=== PATIENT | female | born 1945 | race Caucasian/White ===

== ENCOUNTER 2018-05-27 16:38 | Emergency (ER) | payer MEDICARE, OTHER ==
--- NOTE | 2018-05-27 18:46 | EDM.PDOC ---
ED HPI GENERAL MEDICAL PROBLEM - General Chief Complaint: Chest Pain Stated Complaint: CHEST PAIN Time Seen by Provider: 05/27/18 17:16 Source of Information: Reports: Patient, Family History Limitations: Reports: No Limitations - History of Present Illness INITIAL COMMENTS - FREE TEXT/NARRATIVE: Pt is 72 yo F h/o DM2, HLD, DM2 comes in today with for mid sternal chest pain that started a couple hours ago. She states she is "scared" and wanted to make sure it wasn't her heart. She states this is the 3rd episode she has had within the past week and she has had them off and on for 3 months now. She thinks it is getting more consistent. The onset is random, she doesn't think anything makes it worse or better. She has not tried any medications at home. She states she has just been feeling exhausted and describes the pain as a constant "dullish" pain, lasts for about an hour, and just goes away on its own. She denies any previous heart issues, changes in eating, heart burn or any sick symptoms at this time. She does admit that she is having some marital issues at this time and has been very stressed out at home. She is tearful when talking about this. No other complaints at this time. Her PCP is Lala MUNOZ. Chest Pain Score (Numeric/FACES): 7 - Related Data Allergies Allergy/AdvReac Type Severity Reaction Status Date / Time No Known Allergies Allergy Verified 05/27/18 17:05 Past Medical History Cardiovascular History: Reports: Hypertension Gastrointestinal History: Reports: Bowel Obstruction Endocrine/Metabolic History: Reports: Diabetes, Type II - Past Surgical History Female Surgical History: Reports: Hysterectomy Social & Family History - Tobacco Use Smoking Status *Q: Former Smoker Used Tobacco, but Quit: Yes Month/Year Tobacco Last Used: 40 years ago - Caffeine Use Caffeine Use: Reports: Coffee - Recreational Drug Use Recreational Drug Use: No ED ROS GENERAL - Review of Systems Review Of Systems: See Below Constitutional: Reports: No Symptoms. Denies: Fever, Chills, Diaphoresis HEENT: Reports: Glasses Respiratory: Reports: No Symptoms. Denies: Shortness of Breath, Cough Cardiovascular: Reports: Chest Pain (mid sternal), Blood Pressure Problem. Denies: Edema, Palpitations Endocrine: Reports: No Symptoms GI/Abdominal: Reports: No Symptoms. Denies: Abdominal Pain, Diarrhea, Nausea, Vomiting : Reports: No Symptoms Musculoskeletal: Reports: No Symptoms Skin: Reports: No Symptoms Neurological: Reports: No Symptoms Psychiatric: Reports: Anxiety ED EXAM, GENERAL - Physical Exam Exam: See Below Exam Limited By: No Limitations General Appearance: Alert, WD/WN, Anxious Eye Exam: Bilateral Eye: EOMI, Normal Inspection, PERRL Ears: Normal External Exam, Hearing Grossly Normal Nose: Normal Inspection Head: Atraumatic, Normocephalic Neck: Normal Inspection, Supple, Non-Tender, Full Range of Motion Respiratory/Chest: No Respiratory Distress, Lungs Clear, Normal Breath Sounds, No Accessory Muscle Use, Chest Non-Tender Cardiovascular: Normal Peripheral Pulses, Regular Rate, Rhythm, No Edema, No Gallop, No JVD, No Murmur, No Rub GI/Abdominal: Normal Bowel Sounds, Soft, Non-Tender, No Organomegaly, No Distention, No Abnormal Bruit, No Mass Back Exam: Normal Inspection Neurological: Alert, Oriented, CN II-XII Intact, Normal Cognition, Normal Gait, Normal Reflexes, No Motor/Sensory Deficits Psychiatric: Normal Affect, Anxious, Tearful Skin Exam: Warm, Dry, Intact, Normal Color, No Rash EKG INTERPRETATION EKG Date: 05/27/18 Time: 17:30 Rhythm: NSR [place]: Normal P-Wave: Present QRS: Normal ST-T: Normal QT: Normal EKG Interpretation Comments: low voltage Course - Vital Signs Last Recorded V/S: Last Vital Signs Temp 97.9 F 05/27/18 16:58 Pulse 94 05/27/18 16:58 Resp 16 05/27/18 16:58 BP 149/72 H 05/27/18 16:58 Pulse Ox 98 05/27/18 16:58 - Orders/Labs/Meds Orders: Active Orders 24 hr Category Date Time Status EKG 12 Lead [EKG Documentation Completion] [RC] STAT Care 05/27/18 17:10 Active Chest 2V [CR] Stat Exams 05/27/18 17:16 Taken Labs: Laboratory Tests 05/27/18 05/27/18 05/27/18 Range/Units 17:30 17:30 17:30 WBC 8.77 (3.98-10.04) K/mm3 RBC 4.30 (3.98-5.22) M/mm3 Hgb 12.9 (11.2-15.7) gm/L Hct 40.5 (34.1-44.9) % MCV 94.2 (79.4-94.8) fl MCH 30.0 (25.6-32.2) pg MCHC 31.9 L (32.2-35.5) g/dl RDW Std Deviation 44.5 (36.4-46.3) fL Plt Count 339 (182-369) K/mm3 MPV 9.9 (9.4-12.3) fl Neut % (Auto) 62.5 (34.0-71.1) % Lymph % (Auto) 22.2 (19.3-51.7) % [place] % (Auto) 10.7 (4.7-12.5) % Eos % (Auto) 3.6 (0.7-5.8) Baso % (Auto) 0.7 (0.1-1.2) % Neut # (Auto) 5.47 (1.56-6.13) K/mm3 Lymph # (Auto) 1.95 (1.18-3.74) K/mm3 [place] # (Auto) 0.94 H (0.24-0.36) K/mm3 Eos # (Auto) 0.32 (0.04-0.36) K/mm3 Baso # (Auto) 0.06 (0.01-0.08) K/mm3 Sodium 142 (136-145) mEq/L Potassium 3.9 (3.5-5.1) mEq/L Chloride 104 (98-107) mEq/L Carbon Dioxide 24 (21-32) mEq/L Anion Gap 17.9 H (5-15) BUN 18 (7-18) mg/dL Creatinine 1.0 (0.55-1.02) mg/dL Est Cr Clr Drug Dosing 47.10 mL/min Estimated GFR (MDRD) 55 (>60) mL/min BUN/Creatinine Ratio 18.0 (14-18) Glucose 153 H (80-115) mg/dL Calcium 9.8 (8.5-10.1) mg/dL Total Bilirubin 0.3 (0.2-1.0) mg/dL AST 29 (15-37) U/L ALT 53 (14-59) U/L Alkaline Phosphatase 99 (46-116) U/L Troponin I < 0.017 (0.00-0.056) ng/mL Total Protein 7.4 (6.4-8.2) g/dl Albumin 3.8 (3.4-5.0) g/dl Globulin 3.6 gm/dL Albumin/Globulin Ratio 1.1 (1-2) - Re-Assessments/Exams Free Text/Narrative Re-Assessment/Exam: 05/27/18 17:10 Ordered CBC, CMP, Troponin, CXR, EKG 05/27/18 17:30 Troponin <0.017 EKG WNL 05/27/18 19:00 CXR reviewed by myself and Dr. Rosario- nothing acute seen. 05/27/18 20:03 CBC and CMP WNL At this time workup has been WNL. This chest pain is likely 2/2 anxiety and stress that pt admitted to. Recommend relaxation activities and follow up with primary care. She agrees with this plan. Departure - Departure Time of Disposition: 19:59 Disposition: Home, Self-Care 01 Condition: Good Clinical Impression: Anxiety, Chest pain due to psychological stress Instructions: Nonspecific Chest Pain, [id number], Living With Anxiety, Panic Attack, [id number] Referrals: Lala Perez [facility]ESSION[facility] [Primary Care Provider] - Forms: ED Department Discharge Additional Instructions: You were seen in the ED today for chest pain. Your cardiac workup and infectious workup was negative today, and it seems that the source is likely related to current stress/anxiety in your life. Recommend counseling, meditation , and any other relaxing activity such as walking to help alleviate the stress. Recommend follow up with primary care provider. Please return to ED if new or worsening symptoms. - My Orders Last 24 Hours: My Active Orders 05/27/18 17:10 EKG 12 Lead [EKG Documentation Completion] [RC] STAT 05/27/18 17:16 Chest 2V [CR] Stat - Assessment/Plan Last 24 Hours: My Active Orders 05/27/18 17:10 EKG 12 Lead [EKG Documentation Completion] [RC] STAT 05/27/18 17:16 Chest 2V [CR] Stat
--- NOTE | 2018-05-28 07:08 | CR ---
Chest: Two views of the chest were obtained. Comparison: Previous chest x-ray of 10/06/14. Heart size and mediastinum are normal. Lungs are clear. Bony structures are unremarkable for the patient's age. Impression: 1. Nothing acute is seen on two-view chest x-ray. Diagnostic code #1
== END 2018-05-27 20:05 | disposition home or self-care (01) ==
LOC: JD.ED 16:38
DX: R07.2 Precordial pain (principal); F43.9 Reaction to severe stress, unspecified; F41.9 Anxiety disorder, unspecified; I10 Essential (primary) hypertension; E11.9 Type 2 diabetes mellitus without complications; Z87.891 Personal history of nicotine dependence
CPT/HCPCS: 36415; 71046; 71046-26; 80053; 84484; 85025; 93005; 93010; 99284; 99285-25

== ENCOUNTER 2021-03-30 08:21 | Day surgery (SDC) | payer MEDICARE ==
[~2021-03-30 08:21] MED LIST: Lactated Ringers 1,000 ML IV SCH; Lidocaine 1%/Sod Bicarbonate in NS 8.4% 1 ML Syringe IDERM PRN; Sodium Chloride 0.9% 10 ML Syringe FLUSH PRN; Sodium Chloride 0.9% 10 ML Syringe FLUSH SCH
[2021-03-30] MEDS: oxyCODONE ER 10 MG TAB.ER PO SCH ×2 (08:46→08:50)
[2021-03-30] MEDS: Acetaminophen 325 MG Tab PO SCH ×2 (08:47→08:50)
[2021-03-30] MEDS: Pregabalin 25 MG Cap PO SCH ×2 (08:47→08:50)
[2021-03-30] MEDS ORDERED: Midazolam 1 MG/ML 2 ML SDV ONE (10:34)
[2021-03-30] MEDS ORDERED: ceFAZolin 1 GM Vial ONE (10:35)
[2021-03-30] MEDS ORDERED: fentaNYL 100 MCG/2 ML SDV ONE (10:35)
[2021-03-30] MEDS ORDERED: Propofol 200 MG/20 ML SDV ONE ×2 (10:36→12:07)
[2021-03-30] MEDS ORDERED: Lidocaine 1% 4 ML ONE (10:36)
[2021-03-30] MEDS ORDERED: fentaNYL 100 MCG/2 ML SDV IVPUSH PRN (11:24)
[2021-03-30] MEDS ORDERED: Ondansetron 4 MG/2 ML SDV IVPUSH PRN (11:24)
[2021-03-30] MEDS ORDERED: Lactated Ringers 1,000 ML ONE (11:31)
[2021-03-30] MEDS: Morphine 8 MG, EPINEPHrine 0.3 MG, Cefuroxime 750 MG, Ketorolac 30 MG, Sodium Chloride ... PRN ×10 (11:31→12:05)
[2021-03-30] MEDS: Vancomycin 1 GM SDV ONE ×2 (11:31→12:10)
[2021-03-30] MEDS ORDERED: Ondansetron 4 MG/2 ML SDV ONE (11:59)
[2021-03-30] MEDS ORDERED: Acetaminophen/HYDROcodone 325-5 MG Tab PO PRN (12:39)
[2021-03-30] MEDS ORDERED: EPINEPHrine 1 MG/ML SDV ONE (12:44)
[2021-03-30] MEDS ORDERED: Ropivacaine 0.5% 5 MG/ML 30 ML SDV ONE (12:44)
[2021-03-30] MEDS ORDERED: Metoclopramide 10 MG/2 ML SDV IVPUSH STA (14:01)
[2021-03-30] MEDS ORDERED: Haloperidol Lactate 5 MG/ML SDV IVPUSH ONE (14:41)
[2021-03-30] MEDS ORDERED: Scopolamine 1.5 MG Transdermal Patch TRDERM ONE (16:15)
[2021-03-31] MEDS ORDERED: Acetaminophen/HYDROcodone 325-5 MG Tab PO PRN (10:13)
[2021-03-31] MEDS ORDERED: Ondansetron 4 MG/2 ML SDV IVPUSH ONE (10:51)
== END 2021-03-31 14:20 | disposition home or self-care (01) ==
LOC: JD.SDS 08:21 → JD.ICU 18:30 → JD.SDS 03-31 14:20
PROVIDERS: ATTEND Orthopaedic Surgery
DX: M17.0 Bilateral primary osteoarthritis of knee (principal); I10 Essential (primary) hypertension; E11.9 Type 2 diabetes mellitus without complications; E03.9 Hypothyroidism, unspecified; F41.9 Anxiety disorder, unspecified; Z79.82 Long term (current) use of aspirin; Z88.8 Allergy status to other drugs, medicaments and biological substances; Z79.899 Other long term (current) drug therapy; Z79.890 Hormone replacement therapy; Z87.891 Personal history of nicotine dependence
CPT/HCPCS: 01402; 64450; 73560-26-LT; 73560-LT; 76942; 82947; 97110-GP; 97116-GP; 97161-GP; 99100; A9270-GY; C1713; C1776; J0171; J0690; J0697; J1630; J1885; J2250; J2270; J2405; J2704; J2765; J2795; J3010; J3370; J7120

== ENCOUNTER 2021-04-04 18:09 | Emergency (ER) | payer MEDICARE | END 2021-04-04 19:30 | disposition home or self-care (01) | LOC: JD.ED 18:09 | DX: K59.03 Drug induced constipation (principal); T50.905A Adverse effect of unspecified drugs, medicaments and biological substances, initial encounter; I10 Essential (primary) hypertension; K21.9 Gastro-esophageal reflux disease without esophagitis; E11.9 Type 2 diabetes mellitus without complications; Z88.8 Allergy status to other drugs, medicaments and biological substances; Z79.82 Long term (current) use of aspirin; Z79.899 Other long term (current) drug therapy; Z87.891 Personal history of nicotine dependence | CPT/HCPCS: 74018; 74018-26; 99283; 99283-25 ==

== ENCOUNTER 2022-03-08 15:06 | Emergency (ER) | payer MEDICARE ==
[2022-03-08] MEDS ORDERED: Dextrose 5%-0.9% NaCl 1,000 ML IV SCH (15:45)
[2022-03-08 17:53] LABS: ESTIMATED GFR 36 mL/min (>60)
== END 2022-03-08 19:20 | disposition home or self-care (01) ==
LOC: JD.ED 15:06
DX: I95.2 Hypotension due to drugs (principal); T50.905A Adverse effect of unspecified drugs, medicaments and biological substances, initial encounter; E86.9 Volume depletion, unspecified; I10 Essential (primary) hypertension; E11.9 Type 2 diabetes mellitus without complications; K21.9 Gastro-esophageal reflux disease without esophagitis; Z88.8 Allergy status to other drugs, medicaments and biological substances; Z79.899 Other long term (current) drug therapy; Z86.16 Personal history of COVID-19
CPT/HCPCS: 36415; 71045; 80053; 81001; 82553; 83735; 83880; 84443; 84484; 85025; 85379; 85610; 85730; 86140; 93005; 96360; 96361; 99285; J7042

== ENCOUNTER 2023-06-25 16:44 | Emergency (ER) | payer MEDICARE ==
[2023-06-25] MEDS: Iopamidol 755 Mg/ML 100 ML Bottle IVPUSH ONE (16:56)
[2023-06-25] MEDS: Sodium Chloride 0.9% 10 ML Syringe FLUSH ONE (16:56)
[2023-06-25] MEDS: Sodium Chloride 0.9% 100 ML IV SCH (16:56)
[2023-06-25] MEDS: Ondansetron 4 MG/2 ML SDV IVPUSH ONE (17:08)
[2023-06-25] MEDS ORDERED: Ondansetron 4 MG/2 ML SDV ONE (17:08)
[2023-06-25 17:15] LABS: BASOPHILS ABSOLUTE AUTO 0.1 K/mm3 (0.0-0.2); BASOPHILS PERCENT AUTO 0.7 % (0.0-1.0); EOSINOPHILS ABSOLUTE AUTO 0.2 K/mm3 (0.0-0.4); EOSINOPHILS PERCENT AUTO 2.2 % (0.0-6.0); HEMATOCRIT 38.3 % (37.0-47.0); HEMOGLOBIN 12.4 gm/dl (12.0-16.0); IMMATURE GRAN ABSOLUTE AUTO 0.04 K/mm3 (0.00-0.05); IMMATURE GRAN PERCENT AUTO 0.5 % (0.0-0.4); LYMPHOCYTES ABSOLUTE AUTO 1.5 K/mm3 (1.0-4.8); LYMPHOCYTES PERCENT AUTO 16.6 % (24.0-44.0); MEAN CORPUSCULAR HEMOGLOBIN 30.5 pg (28.0-32.0); MEAN CORPUSCULAR HGB CONC 32.4 g/dl (32.0-36.0); MEAN CORPUSCULAR VOLUME 94.3 fl (83.0-99.0); MEAN PLATELET VOLUME 9.2 fl (9.4-12.3); MONOCYTES ABSOLUTE AUTO 0.7 K/mm3 (0.0-0.8); MONOCYTES PERCENT AUTO 8.2 % (0.0-8.0); NEUTROPHILS ABSOLUTE AUTO 6.3 K/mm3 (1.8-7.7); NEUTROPHILS PERCENT AUTO 71.8 % (41.0-71.0); PLATELET COUNT,PLT 308 K/mm3 (150-400); RED BLOOD CELL COUNT 4.06 M/mm3 (4.10-5.30); WHITE BLOOD CELL COUNT,WBC 8.79 K/mm3 (3.9-11.3)
[2023-06-25 17:35] LABS: INR 0.96; PROTHROMBIN TIME 10.3 SECONDS (9.7-12.0)
[2023-06-25 17:36] LABS: PTT,PARTIAL THROMBOPLSTIN TIME 25.3 SECONDS (21.7-31.4)
[2023-06-25] MEDS: hydrALAZINE 20 MG/ML SDV IVPUSH ONE (17:48)
[2023-06-25] MEDS: Sodium Chloride 0.9% 10 ML Syringe FLUSH PRN (18:24)
[2023-06-25 18:38] LABS: A/G RATIO 1.1 (1-2); ALBUMIN 3.6 g/dl (3.4-5.0); ANION GAP 12.8 (5-15); BILIRUBIN TOTAL 0.4 mg/dL (0.2-1.0); BUN/CREATININE RATIO 17.1 (14-18); CALCIUM 9.1 mg/dL (8.5-10.1); CREATININE 1.4 mg/dL (0.55-1.02); EST CRCL DRUG DOSING (CG) 30.76 mL/min; POTASSIUM,K 3.8 mEq/L (3.5-5.1)
== END 2023-06-25 19:20 | disposition home or self-care (01) ==
LOC: JD.ED 16:44
DX: I16.1 Hypertensive emergency (principal); H53.9 Unspecified visual disturbance; I10 Essential (primary) hypertension; E11.9 Type 2 diabetes mellitus without complications; E03.9 Hypothyroidism, unspecified; E66.9 Obesity, unspecified; Z86.16 Personal history of COVID-19; Z79.84 Long term (current) use of oral hypoglycemic drugs; Z79.899 Other long term (current) drug therapy; Z88.8 Allergy status to other drugs, medicaments and biological substances
CPT/HCPCS: 36415; 70450; 70496; 70498; 80053; 82947; 84484; 85025; 85610; 85730; 93005; 96374; 96375; 99285; J0360; J2405; J3490; Q9967; 93010; 99284

== ENCOUNTER 2023-08-28 08:39 | Day surgery (SDC) | payer MEDICARE, OTHER ==
[~2023-08-28 08:39] MED LIST changes: -Lactated Ringers 1,000 ML IV SCH; -Lidocaine 1%/Sod Bicarbonate in NS 8.4% 1 ML Syringe IDERM PRN
[2023-08-28] MEDS: Lactated Ringers 1,000 ML IV SCH (09:23)
[2023-08-28] MEDS ORDERED: Propofol 200 MG/20 ML SDV ONE ×2 (10:40→10:41)
[2023-08-28] MEDS ORDERED: Lidocaine 1% 4 ML ONE (10:40)
[2023-08-28] MEDS ORDERED: fentaNYL 100 MCG/2 ML SDV ONE (10:40)
== END 2023-08-28 12:30 | disposition home or self-care (01) ==
LOC: JD.SDS 08:39
PROVIDERS: ATTEND Surgery
DX: Z12.11 Encounter for screening for malignant neoplasm of colon (principal); D12.2 Benign neoplasm of ascending colon; D12.7 Benign neoplasm of rectosigmoid junction; K21.00 Gastro-esophageal reflux disease with esophagitis, without bleeding; K64.8 Other hemorrhoids; K64.4 Residual hemorrhoidal skin tags; K57.30 Diverticulosis of large intestine without perforation or abscess without bleeding; K22.89 Other specified disease of esophagus; I10 Essential (primary) hypertension; G47.33 Obstructive sleep apnea (adult) (pediatric); E11.9 Type 2 diabetes mellitus without complications; E78.00 Pure hypercholesterolemia, unspecified; Z87.891 Personal history of nicotine dependence; Z79.890 Hormone replacement therapy; Z79.84 Long term (current) use of oral hypoglycemic drugs; Z79.899 Other long term (current) drug therapy; Z88.8 Allergy status to other drugs, medicaments and biological substances
CPT/HCPCS: 43239; 45380; 45385; 82947; J2704; J3010; J7120; J3490